=== PATIENT | male | born 1975 | race Caucasian/White ===

== ENCOUNTER → 2016-05-15 | Outpatient (CLI) | payer OTHER ==
--- NOTE | 2016-05-15 10:35 | DX ---
Chest, Two Views May 15, 2016, at 0900 Hours History: R63.4, abnormal weight loss; please see script. Comparison: None. Findings: Cardiac silhouette is within normal range. Bilateral apical pleuroparenchymal scarring. Garret ateral upper lobe peribronchial thickening. No pneumonia, congestive heart failure, pleural effusion, or pneumothorax. Impression: 1. Bilateral apical pleuroparenchymal scarring. 2. Bronchitis. 3. Consider CT chest imaging if there is continued clinical concern.
== END ==
LOC: FIMAGING 08:50
PROVIDERS: ATTEND Family Medicine
DX: R63.4 Abnormal weight loss (principal); J40 Bronchitis, not specified as acute or chronic; R91.8 Other nonspecific abnormal finding of lung field